=== PATIENT | male | born 1990 | race Caucasian/White ===

== ENCOUNTER 2017-07-15 01:21 | Emergency (ER) | payer SELFPAY ==
[2017-07-15 01:30] VITALS: BP 142/96; BMI 23.7
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
== END 2017-07-15 02:10 | disposition left against medical advice (07) ==
LOC: ER 01:21
DX: H57.12 Ocular pain, left eye (principal)
CPT/HCPCS: 99281